=== PATIENT | female | born 1940 | race Caucasian/White ===

== ENCOUNTER 2016-10-06 11:36 | Outpatient (CLI) | payer OTHER, BC ==
--- NOTE | 2016-10-06 12:04 | DIAGNOSTIC IMAGING REPORT ---
PROCEDURE: XR CHEST 2 VIEW INDICATION: PRE OP TECHNIQUE: PA and lateral views. COMPARISON: Chest 06/21/2010 FINDINGS: Lungs are clear. Heart and mediastinum are normal. Thorax is normal. IMPRESSION: 1. Negative chest.
[2016-10-10] MEDS ORDERED: HYDROCHLOROTHIA25 MG PO (14:46)
[2016-10-10] MEDS ORDERED: PROBIOTI1 (14:46)
[2016-10-10] MEDS ORDERED: LANSOPRAZOLE30 MG PO (15:38)
[2016-10-10] MEDS ORDERED: METOPROLOL SUCC25 MG PO (15:39)
[2016-10-10] MEDS ORDERED: DICLOFENAC SODI75 MG PO (15:42)
[2016-10-10] MEDS ORDERED: TYLENOL EXTRA500 MG PO (15:43)
== END 2016-10-06 23:00 ==
LOC: RT SRH 11:36
DX: Z01.818 Encounter for other preprocedural examination (principal); Z01.812 Encounter for preprocedural laboratory examination
CPT/HCPCS: 90001; 90004; 90074; 90100; 90155; 90469; 91004; 92132; 94060; 95059; 95150

== ENCOUNTER 2016-10-14 06:02 | Inpatient (IN) | payer OTHER, BC ==
--- NOTE | 2016-09-29 13:37 | HISTORY AND PHYSICAL ---
ADMITTED: 10/14/2016 CHIEF COMPLAINT: 1. Bilateral hip pain HISTORY OF PRESENT ILLNESS: The patient has what she believes to be an inherited propensity to develop osteoarthritis, as she has problems with multiple joints, including her cervical and lumbar spine, right shoulder, right wrist, both hips and both knees. She has had previous knee replacement surgery done on both sides and has had increasing pain to the point where it is very difficult for her to ambulate, even with the use of a walker because of the pain that she is experiencing in her hips. She would like to have her hips replaced and came here specifically for more information, for scheduling for that procedure. The patient says that neither side is particularly worse than the other. They are both just bad, and she has taken anti-inflammatory medications without relief of the pain. She has tried both diclofenac and naproxen in the recent past. She has also been taking some Tylenol, none of which has made much difference in the pain, and again she would like to have a hip replacement surgery performed. MEDICAL/SURGICAL HISTORY: The patient's past history is positive in that she suffers from hypertension and has a history of GERD. She also has chronic fatigue syndrome and insomnia. She has had some palpitations and has an anxiety disorder as well. She has had prior surgeries for the knee replacements, as noted above. She has also had surgery on her low back. She said that just relieved the pain for about a year, and that was done about 12 years ago, and the pain came back within a year's time and unfortunately it is about as bad as ever now. She had surgery on her right foot for removal of a spur and a cyst removed from her right hand. She has also had a previous hysterectomy and cholecystectomy surgery. MEDICATIONS: 1. ALLERGIES: 1. CODEINE. SOCIAL HISTORY: She is a former smoker, but does not smoke at all at the present time. FAMILY HISTORY: She has a positive family history for diabetes, heart disease, psoriasis, arthritis, hypertension, and CVA. REVIEW OF SYSTEMS: Has not listed any positive findings, but she has had some GI complaints and some GI pain and discomfort. She also has some swelling of the extremities. She has, in the past, suffered from palpitations. She denies other serious medical illness, and specifically denied having had an AL or CVA, or having any type of cancer other than that of skin cancer that was removed, and she has not had any recurrence of that. She has not had tuberculosis, has not had AIDS, not had hepatitis, not had any problems with anesthesia or any bleeding problems. PHYSICAL EXAMINATION: HEENT: Shows her head to be just normocephalic, atraumatic. Eyes are clear. Hearing is maybe just mildly diminished but it is near normal. Her face is symmetrical. NECK: Without jugular venous distention. CHEST: Likewise is symmetrical. ABDOMEN: Obese. CARDIORESPIRATORY: The heart and lung exam we will do when she comes to the hospital. EXTREMITIES: On the hip, she has decreased range of motion. She walks with a marked limp and needs to use a walker for stabilization purposes and has weakness of the hip extensors. More distally in the extremities she has no erythema. There are no open wounds or drainage, but she does have 2 to 3+ pedal edema. She does have active dorsiflexion and plantar flexion of the feet present. LAB/IMAGING: She has x-rays which show her to have complete loss of the joint spaces are multiple cyst formations and erosion of the superior aspect of the femoral heads on both sides. IMPRESSION: 1. Severe osteoarthritis, particularly affecting the hips PLAN: Right hip replacement surgery. I have explained the procedure to her, including where the incision would be, how we would go about doing the surgery, what the components looked like, the material that they would be made out of, the risk of dislocation, of infection, of problems with healing, of the possibility of bleeding and need for blood transfusion, of anesthesia complications, including , and of problems with healing of the prosthetic components to the bone and of late failure, with need for further surgery on the hips. She understands and accepts. She would like to proceed with the surgery, and we will plan to do it then. She has tentatively been scheduled for 10/14/2015.
[~2016-10-14] VITALS: Ht 152.4 cm; Wt 110.8 kg
[2016-10-14] VITALS (8 sets, daily range): BP systolic 98–150; BP diastolic 58–81
[~2016-10-14 06:02] MED LIST: DICLOFENAC SODI75 MG PO; HYDROCHLOROTHIA25 MG PO; LANSOPRAZOLE30 MG PO; METOPROLOL SUCC25 MG PO; PROBIOTI1; TYLENOL EXTRA500 MG PO
--- NOTE | 2016-10-14 10:25 | Postoperative Progress Note ---
Postop Progress Note Preoperate Diagnosis: Arthritis Postoperative Diagnosis: Same Surgeon: Giorgio Hopkins MD Anesthesia: General ETT Findings: Arthritis right hip Procedure: Right MARIS Complications? No Condition: Stable EBL: 500cc Blood Administered: 0 Specimen(s) removed? Yes Specimen removed/disposition: Right femoral head Grafts or Implants? Yes Graft/Implant type: Right MARIS . (See nursing notes for details of grafts/implants)
--- NOTE | 2016-10-14 11:58 | DIAGNOSTIC IMAGING REPORT ---
PROCEDURE: XR HIP 2VW W W/O AP PELVIS-RT INDICATION: post op MARIS TECHNIQUE: AP view of the pelvis and hips with lateral view of the right hip. COMPARISON: None. FINDINGS: Right HIP: Right total hip replacement. Anatomic alignment. Hardware in good position. PELVIS: Severe degenerative changes of the left hip. IMPRESSION: 1. Right total hip replacement in good alignment. 2. Severe degenerative changes left hip.
--- NOTE | 2016-10-14 12:53 | OPERATIVE REPORT ---
DATE OF SURGERY: 10/14/2016 SURGEON: MICHELLE HAMILTON MD PREOPERATIVE DIAGNOSIS: Arthritis of the right hip. POSTOPERATIVE DIAGNOSIS: Arthritis of right hip. PROCEDURE PERFORMED: The operation proposed is a right hip replacement. The operation performed is right hip replacement. ESTIMATED BLOOD LOSS: Probably a little under 500 mL. COMPLICATIONS: None. PATHOLOGY SPECIMEN: Sent to the lab right femoral head. DESCRIPTION OF PROCEDURE: The patient was taken to the operating room, where she was given general anesthetic and placed on her left side on the operating table, the pegboard used to help support her and she had sterile prepping and draping of the entire right lower extremity, including the hip and buttock. A slightly oblique longitudinal posterolateral incision was made over the hip, carried down through subcutaneous tissue and deep fascia was incised in line with its fibers and we then went down through the muscle, identified the sciatic nerve, tagged it with a Charlie drain and resected the short external rotator muscles from their attachment of the proximal femur and opened the capsule in a T-shaped fashion tagging the limbs of the capsule with #2-0 nonabsorbable braided suture. She then had tag suture placed in the femur as far distally as I could go and we dislocated the hip, measured from that tag suture up into the center of the femoral head and once we established the correct length and resected the head and neck using an oscillating saw, the patient then had retractors placed along the margin of the acetabulum. I removed some of the labrum from around the periphery of the acetabulum and the remaining portion of the ligamentum teres that was present there and she was reamed in a stepwise fashion up to the final 51 mm size. I removed a little bit more of the soft tissue and then we took a 52 mm cup and placed it in position, trying to reestablish the patient's chitimacha anteversion. She only had about what looked like probably 15 to 20 degrees of anteversion and so we tried to duplicate that as closely as possible and establish the normal anatomy as closely as possible and seated the cup down in position and it was very secure and we removed the web offset press feeder, drilled a single hole through one of the holes in the cup and measured with a depth gauge the appropriate length and placed a self-tapping screw to help secure the cup and prevent rotation and got a neutral liner and seated it down in position and the cuff. After this, we took the castaclip cutter osteotome, osteotomized the remaining portion of the lateral femoral neck and used a canal finder to find the canal of the femur, broached in a stepwise fashion up to final #4 size. It was a very secure tight fit in the femur. I was if I put in anything larger, that we could crack the femur as it was very tight and so we removed the broach, got the #4 size femoral stem, seated it down into position, we broached and seated the stem down in 15-20 degrees of anteversion, again trying to establish the patient's normal anatomy and the stem seated down very securely. We then went through the trialing process using first a -3 and then a 0 and then a +4 femoral head trials. The zero was about the same length that she had previously. There was some shortening because of erosion and when we tried to reduce the hip with a +0 femoral head with the hip in flexion and maximally adducted, I could only internally rotate her to about 35-40 degrees before she dislocated and I felt it best that we would lengthen her a little bit and try to get better stability and use a +4 head, with that the stability was much better and in the same flexion and adduction position, I could internally rotate her to at least 60 if not 70 degrees before she would dislocate, and so we got the actual +4 head, seated it on the taper, reduced the hip, closed the capsule in a combination of interrupted and running #2 nonabsorbable braided suture, repaired the piriformis tendon back to the proximal femur with the same suture, checked the sciatic nerve, which looked to be in absolutely perfect condition and removed the Avilla drain from around it, closed the deep fascia with #2-0 nonabsorbable braided suture then oversewn proximally with some #1 Polysorb suture, closed the subcutaneous layer with 2-0 running Polysorb suture, and the skin with subcuticular 3-0 Polysorb suture. She was dressed with Xeroform after injecting along the incision line with some Marcaine 0.5% without epinephrine and then dressed with Xeroform, ABDs. These were taped securely in place, she was placed in a knee immobilizer. She was awakened and taken to the recovery room. She is in stable condition.
[2016-10-15 02:57] VITALS: BP 119/50
[2016-10-15 08:33] VITALS: BP 128/70
--- NOTE | 2016-10-15 08:33 | Progress Note ---
Subjective General Afebrile VSS No c/o. She is up eating breakfast and has been to the [facility] several times with the walker. She would like to go home. She may DC home today with an ASA BID and Oxycodone for pain. Her preop UA showed 10-15 WBCs and some nitrites and leukocyte esterase, but the C/S was negative. She has gotten Ancef pre and postop and I don't think more antibiotics is warranted at this time and may cause GI problems if we contniue. I will order another UA and treat if it is +. DC home today.
[2016-10-15] MEDS ORDERED: VOL-TAB RX PO (08:37)
[2016-10-15] MEDS ORDERED: OXAYDO5 MG PO (08:38)
--- NOTE | 2016-10-15 08:40 | Provider's Discharge Care Plan ---
Problem, Goal, Plan Problem List 1. OA (osteoarthritis)
--- NOTE | 2016-10-15 08:40 | Provider's Discharge Care Plan ---
Problem, Goal, Plan Problem List 1. OA (osteoarthritis)
[2016-10-15 14:40] VITALS: BP 128/70
== END 2016-10-15 15:40 | disposition home health service (06) | DRG 470 ==
LOC: SCU SRH 06:02 → U SRH 07:30 → ACUTE2 SRH 11:29
PROVIDERS: ADMIT Orthopaedic Surgery
PROC: 0SR90JA Replacement of Right Hip Joint with Synthetic Substitute, Uncemented, Open Approach (ICD-10-PCS; principal; 2016-10-14 07:30)
DX: M16.0 Bilateral primary osteoarthritis of hip (principal); Z96.653 Presence of artificial knee joint, bilateral; I10 Essential (primary) hypertension; R53.82 Chronic fatigue, unspecified; K21.9 Gastro-esophageal reflux disease without esophagitis; F41.9 Anxiety disorder, unspecified; Z87.891 Personal history of nicotine dependence